=== PATIENT | male | born 1975 | race Two or more races ===

== ENCOUNTER 2018-04-07 20:20 | Emergency (ER) | payer OTHER ==
[~2018-04-07] VITALS: Ht 172.7 cm; Wt 90.7 kg
--- NOTE | 2018-04-07 20:43 | NUR ---
patient walked into er c/o genaralized bodyache,sorethroat,nausea with WARREN x3 days. Patient here for symptoms not resolving. Dr Mesa into eval patient. Patient refusing to have IV med or shot. Requesting only antibiotic pills
--- NOTE | 2018-04-07 20:47 | NUR ---
Patient discharged to home in stable conditon. Written and verbal after care instructions given. Patient verbalizes understanding of instructions. Walked out of ER with no distress noted
== END 2018-04-07 20:54 | disposition home or self-care (01) ==
LOC: ER 20:25
DX: J02.9 Acute pharyngitis, unspecified (principal)
CPT/HCPCS: A4663; J7030